=== PATIENT | female | born 1960 | race Hispanic/Latino ===

== ENCOUNTER 2021-11-20 14:22 | Inpatient (IN) | payer BC, OTHER ==
[~2021-11-20] VITALS: Ht 152.4 cm; Wt 78.0 kg
[2021-11-20 14:55] LABS: BASOPHILS % 0.6 % (0.0-1.0); EOSINOPHILS # (AUTO) 0.1 (0.0-0.4); EOSINOPHILS % 2.8 % (0.0-6.0); HEMATOCRIT 40.5 % (34.2-44.1); HEMOGLOBIN 12.5 g/dL (12.0-16.0); LYMPHOCYTES # (AUTO) 0.7 (1.0-3.2); LYMPHOCYTES % 19.8 % (18.0-39.1); MEAN CORPUSCULAR HEMOGLOBIN 28.6 pg (28-32); MEAN CORPUSCULAR HGB CONC 30.9 g/dL (31-35); MEAN CORPUSCULAR VOLUME 92.7 fL (81-99); MONOCYTES # (AUTO) 0.3 (0.2-0.8); MONOCYTES % 8.1 % (4.4-11.3); NEUTROPHILS # (AUTO) 2.5 (2.1-6.9); NEUTROPHILS % 68.4 % (38.7-80.0); PLATELET COUNT 50 x10e3/uL (140-360); RED BLOOD COUNT 4.37 x10e6/uL (3.6-5.1); RED CELL DISTRIBUTION WIDTH 15.5 % (11.7-14.4)
[2021-11-20 15:02] LABS: AMMONIA 294 UG/DL (31-123)
[2021-11-20 15:03] LABS: INR 1.25; PROTHROMBIN TIME 16.5 seconds (11.9-14.5)
[2021-11-20 15:04] LABS: PARTIAL THROMBOPLASTIN TIME 36.3 seconds (23.8-35.5)
[2021-11-20 15:14] LABS: ALBUMIN 3.2 g/dL (3.5-5.0); ALBUMIN/GLOBULIN RATIO 0.5 (0.8-2.0); ANION GAP 13.7 mmol/L (8-16); CALCIUM 9.5 mg/dL (8.4-10.2); CREATININE, SERUM 1.22 mg/dL (0.57-1.11)
[2021-11-20 15:18] LABS: POTASSIUM 6.7 mmol/L (3.5-5.1)
[2021-11-20 15:20] LABS: CREATINE KINASE MB 1.2 ng/mL (0-5.0)
[2021-11-20 15:22] LABS: B-TYPE NATRIURETIC PEPTIDE2 < 10.0 pg/mL (0-100)
[2021-11-20 15:23] LABS: SALICYLATE < 5.0 mg/dL (0-30)
[2021-11-20] MEDS ORDERED: SODIUM BICARBONATE 8.4% INJ 50 ML SYR IV STA (15:28)
[2021-11-20 15:32] LABS: AMPHETAMINES SCREEN,URINE NEGATIVE (NEGATIVE); BENZODIAZEPINES SCREEN,URINE NEGATIVE (NEGATIVE); CLARITY,URINE SL CLOUDY (CLEAR); COLOR,URINE STRAW (YELLOW); KETONES,URINE NEGATIVE (NEGATIVE); LEUKOCYTE ESTERASE ,URINE NEGATIVE (NEGATIVE); NITRITE,URINE NEGATIVE (NEGATIVE); PHENCYCLIDINE SCREEN,URINE NEGATIVE (NEGATIVE); PROTEIN,URINE DIPSTICK 1+ (NEGATIVE); URINE UROBILINOGEN 0.2 mg/dL (0.2 - 1)
[2021-11-20 15:42] LABS: BACTERIA,URINE MODERATE /HPF; RBC,URINE 0-5 /HPF (0-5)
[2021-11-20] MEDS ORDERED: SODIUM CHLORIDE 0.9% 500ML 500 ML IV ONE (15:45)
[2021-11-20 15:54] LABS: ANION GAP 11.1 mmol/L (8-16); CALCIUM 9.1 mg/dL (8.4-10.2); CREATININE, SERUM 1.16 mg/dL (0.57-1.11)
[2021-11-20 15:56] LABS: POTASSIUM 6.1 mmol/L (3.5-5.1)
[2021-11-20 15:57] LABS: ABG HCO3 16 mmol/L (22-26); ABG PCO2 30 mmHg (35-45); ABG PH 7.34 (7.35-7.45); ABG PO2 121 mmHg (80-105); ABG TCO2 17
[2021-11-20] MEDS ORDERED: DEXTROSE 50% SYRINGE 50 ML IV STA (16:04)
[2021-11-20] MEDS ORDERED: INSULIN REGULAR, HUMAN 100 UNIT/1 ML IV ONE (16:15)
[2021-11-20] MEDS ORDERED: LACTULOSE SYRUP 20 GM/30 ML UDC PO ONE (16:15)
[2021-11-20] MEDS ORDERED: SOD POLYSTYRENE SULFONATE SUSP 15 GM/60 ML BTL PO ONE (16:15)
[2021-11-20] MEDS ORDERED: IOPAMIDOL 370 MG/ML 200 ML INFUS..BTL INJ ONE (16:19)
[2021-11-20] MEDS ORDERED: DEXTROSE 50% SYRINGE 50 ML IV PRN (16:45)
[2021-11-20] MEDS ORDERED: SODIUM CHLORIDE 0.9% 1000ML 1,000 ML IV ONE (16:45)
[2021-11-20] MEDS ORDERED: ONDANSETRON HCL INJ 2MG/ML 2ML 2 MG/ML VIAL IV PRN (16:45)
[2021-11-20] MEDS ORDERED: LACTULOSE SYRUP 20 GM/30 ML UDC PO PRN (16:45)
[2021-11-20] MEDS: RIFAXIMIN 550 MG TABLET PO SCH (18:00)
[2021-11-20] MEDS: LACTULOSE SYRUP 20 GM/30 ML UDC RC SCH (18:10)
[2021-11-20] MEDS ORDERED: HALOPERIDOL LACTATE 5 MG/ML VIAL IV STA (18:32)
[2021-11-20] MEDS ORDERED: HALOPERIDOL LACTATE 5 MG/ML VIAL ONE (18:38)
[2021-11-20] MEDS ORDERED: LORAZEPAM INJ 2 MG/ML VIAL ONE (18:39)
[2021-11-20] MEDS ORDERED: LORAZEPAM INJ 2 MG/ML VIAL IV ONE (18:45)
[2021-11-20 20:00] VITALS: BP 108/63
[2021-11-20 20:30] VITALS: BP 126/95
[2021-11-20] MEDS: DEXMEDETOMIDINE 400MCG/NS100ML 100 ML IV PRN (20:45)
[2021-11-20] MEDS ORDERED: DEXMEDETOMIDINE 400MCG/NS100ML 100 ML IV ONE (20:48)
[2021-11-20 21:00] VITALS: BP 132/54
[2021-11-20 21:16] LABS: ANION GAP 13.6 mmol/L (8-16); CALCIUM 9.2 mg/dL (8.4-10.2); CREATININE, SERUM 1.21 mg/dL (0.57-1.11); POTASSIUM 5.6 mmol/L (3.5-5.1)
[2021-11-20 22:00] VITALS: BP 131/56
[2021-11-20 22:03] LABS: CREATINE KINASE MB 3.3 ng/mL (0-5.0)
[2021-11-20] MEDS: CEFEPIME 1 GM in SODIUM CHLORIDE 0.9% 50ML 50 ML IV SCH (22:21)
[2021-11-20 23:00] VITALS: BP 125/83
[2021-11-20 23:59] VITALS: BP 125/83
[2021-11-21] VITALS (40 sets, daily range): BP systolic 90–148; BP diastolic 42–97
[2021-11-21] MEDS: LACTULOSE SYRUP 20 GM/30 ML UDC RC SCH ×3 (00:17→12:36)
[2021-11-21 03:54] LABS: CREATINE KINASE MB 3.3 ng/mL (0-5.0)
[2021-11-21] MEDS: METRONIDAZOLE 500MG/NS 100ML 100 ML IV SCH ×3 (06:21→17:34)
[2021-11-21 06:25] LABS: ALBUMIN 2.6 g/dL (3.5-5.0); ALBUMIN/GLOBULIN RATIO 0.5 (0.8-2.0); ANION GAP 9.6 mmol/L (8-16); CALCIUM 8.4 mg/dL (8.4-10.2); CREATININE, SERUM 1.05 mg/dL (0.57-1.11); POTASSIUM 4.6 mmol/L (3.5-5.1)
[2021-11-21] MEDS: RIFAXIMIN 550 MG TABLET PO SCH ×2 (08:56→17:33)
[2021-11-21] MEDS: CEFEPIME 1 GM in SODIUM CHLORIDE 0.9% 50ML 50 ML IV SCH ×2 (08:56→21:31)
[2021-11-21] MEDS: DEXMEDETOMIDINE 400MCG/NS100ML 100 ML IV PRN (08:58)
[2021-11-21 09:02] LABS: BASOPHILS % 0.5 % (0.0-1.0); HEMATOCRIT 32.8 % (34.2-44.1); HEMOGLOBIN 9.5 g/dL (12.0-16.0); LYMPHOCYTES # (AUTO) 0.5 (1.0-3.2); LYMPHOCYTES % 23.5 % (18.0-39.1); MEAN CORPUSCULAR HEMOGLOBIN 28.4 pg (28-32); MEAN CORPUSCULAR VOLUME 98.2 fL (81-99); MONOCYTES # (AUTO) 0.1 (0.2-0.8); MONOCYTES % 7.1 % (4.4-11.3); NEUTROPHILS # (AUTO) 1.3 (2.1-6.9); NEUTROPHILS % 66.9 % (38.7-80.0); RED BLOOD COUNT 3.34 x10e6/uL (3.6-5.1); RED CELL DISTRIBUTION WIDTH 15.5 % (11.7-14.4)
[2021-11-21 09:08] LABS: PLATELET COUNT 33 x10e3/uL (140-360)
[2021-11-21] MEDS: INSULIN LISPRO 100 UNIT/1 ML 3ML VIAL SQ SCH ×3 (11:39→21:32)
[2021-11-21] MEDS ORDERED: LACTULOSE SYRUP 20 GM/30 ML UDC PO PRN (12:45)
[2021-11-21] MEDS ORDERED: GLIPIZIDE5 MG PO (21:42)
[2021-11-21] MEDS ORDERED: SPIRONOLACTONE25 MG PO (21:43)
[2021-11-21] MEDS ORDERED: LASIX10 MG/ML PO (21:43)
[2021-11-22] VITALS (20 sets, daily range): BP systolic 77–153; BP diastolic 41–68
[2021-11-22] MEDS: METRONIDAZOLE 500MG/NS 100ML 100 ML IV SCH ×5 (00:59→23:53)
[2021-11-22 05:28] LABS: BASOPHILS % 0.4 % (0.0-1.0); EOSINOPHILS % 0.4 % (0.0-6.0); HEMATOCRIT 31.9 % (34.2-44.1); HEMOGLOBIN 9.3 g/dL (12.0-16.0); LYMPHOCYTES # (AUTO) 0.4 (1.0-3.2); LYMPHOCYTES % 17.7 % (18.0-39.1); MEAN CORPUSCULAR HEMOGLOBIN 28.5 pg (28-32); MEAN CORPUSCULAR HGB CONC 29.2 g/dL (31-35); MEAN CORPUSCULAR VOLUME 97.9 fL (81-99); MONOCYTES # (AUTO) 0.2 (0.2-0.8); MONOCYTES % 8.5 % (4.4-11.3); NEUTROPHILS # (AUTO) 1.8 (2.1-6.9); NEUTROPHILS % 72.6 % (38.7-80.0); RED BLOOD COUNT 3.26 x10e6/uL (3.6-5.1); RED CELL DISTRIBUTION WIDTH 15.2 % (11.7-14.4)
[2021-11-22 05:30] LABS: PLATELET COUNT 35 x10e3/uL (140-360)
[2021-11-22 06:05] LABS: ALBUMIN 2.5 g/dL (3.5-5.0); ALBUMIN/GLOBULIN RATIO 0.5 (0.8-2.0); CALCIUM 8.4 mg/dL (8.4-10.2); CREATININE, SERUM 1.08 mg/dL (0.57-1.11)
[2021-11-22 06:33] LABS: CHOL/HDL RATIO 4.8 (3.0-3.6)
[2021-11-22] MEDS: INSULIN LISPRO 100 UNIT/1 ML 3ML VIAL SQ SCH ×4 (07:30→21:29)
[2021-11-22] MEDS ORDERED: SODIUM CHLORIDE 0.9% 250ML 250 ML ONE (09:04)
[2021-11-22] MEDS: CEFEPIME 1 GM in SODIUM CHLORIDE 0.9% 50ML 50 ML IV SCH ×2 (09:12→21:20)
[2021-11-22] MEDS: RIFAXIMIN 550 MG TABLET PO SCH ×2 (09:12→17:04)
[2021-11-22] MEDS: ACETAMINOPHEN 325 MG TAB PO PRN (17:08)
[2021-11-22] MEDS ORDERED: HYDRALAZINE HCL 20 MG/ML VIAL IV PRN (21:30)
[2021-11-23] VITALS (8 sets, daily range): BP systolic 116–152; BP diastolic 49–66
[2021-11-23] MEDS: ACETAMINOPHEN 325 MG TAB PO PRN ×2 (05:32→17:38)
[2021-11-23] MEDS: METRONIDAZOLE 500MG/NS 100ML 100 ML IV SCH ×4 (05:53→23:58)
[2021-11-23 06:03] LABS: BASOPHILS % 0.8 % (0.0-1.0); EOSINOPHILS # (AUTO) 0.1 (0.0-0.4); EOSINOPHILS % 2.4 % (0.0-6.0); HEMATOCRIT 31.9 % (34.2-44.1); HEMOGLOBIN 9.6 g/dL (12.0-16.0); LYMPHOCYTES # (AUTO) 0.6 (1.0-3.2); LYMPHOCYTES % 25.6 % (18.0-39.1); MEAN CORPUSCULAR HEMOGLOBIN 28.7 pg (28-32); MEAN CORPUSCULAR HGB CONC 30.1 g/dL (31-35); MEAN CORPUSCULAR VOLUME 95.2 fL (81-99); MONOCYTES # (AUTO) 0.3 (0.2-0.8); MONOCYTES % 10.8 % (4.4-11.3); NEUTROPHILS # (AUTO) 1.5 (2.1-6.9); RED BLOOD COUNT 3.35 x10e6/uL (3.6-5.1); RED CELL DISTRIBUTION WIDTH 15.3 % (11.7-14.4)
[2021-11-23 06:10] LABS: ALBUMIN 2.3 g/dL (3.5-5.0); ALBUMIN/GLOBULIN RATIO 0.5 (0.8-2.0); ANION GAP 8.8 mmol/L (8-16); CREATININE, SERUM 1.09 mg/dL (0.57-1.11); POTASSIUM 3.8 mmol/L (3.5-5.1)
[2021-11-23 06:17] LABS: PLATELET COUNT 36 x10e3/uL (140-360)
[2021-11-23] MEDS: INSULIN LISPRO 100 UNIT/1 ML 3ML VIAL SQ SCH ×4 (08:16→20:44)
[2021-11-23] MEDS: CEFEPIME 1 GM in SODIUM CHLORIDE 0.9% 50ML 50 ML IV SCH ×2 (09:38→20:40)
[2021-11-23] MEDS: RIFAXIMIN 550 MG TABLET PO SCH ×2 (09:38→16:48)
[2021-11-23 11:05] LABS: PLATELET ESTIMATE MARKEDLY DECREASED
[2021-11-23 11:06] LABS: PLATELET MORPHOLOGY COMMENT NORMAL; RBC MORPHOLOGY COMMENT NORMAL
[2021-11-23] MEDS ORDERED: ONDANSETRON HCL 4 MG ORAL DISINTEGRATING TAB PO PRN (14:15)
[2021-11-24] VITALS (7 sets, daily range): BP systolic 128–155; BP diastolic 44–68
[2021-11-24] MEDS: METRONIDAZOLE 500MG/NS 100ML 100 ML IV SCH ×2 (05:03→12:54)
[2021-11-24 05:36] LABS: BASOPHILS % 0.4 % (0.0-1.0); EOSINOPHILS # (AUTO) 0.1 (0.0-0.4); HEMATOCRIT 30.8 % (34.2-44.1); HEMOGLOBIN 9.5 g/dL (12.0-16.0); LYMPHOCYTES # (AUTO) 0.6 (1.0-3.2); LYMPHOCYTES % 23.8 % (18.0-39.1); MEAN CORPUSCULAR HEMOGLOBIN 28.7 pg (28-32); MEAN CORPUSCULAR HGB CONC 30.8 g/dL (31-35); MEAN CORPUSCULAR VOLUME 93.1 fL (81-99); MONOCYTES # (AUTO) 0.2 (0.2-0.8); MONOCYTES % 10.2 % (4.4-11.3); NEUTROPHILS # (AUTO) 1.5 (2.1-6.9); NEUTROPHILS % 62.2 % (38.7-80.0); RED BLOOD COUNT 3.31 x10e6/uL (3.6-5.1)
[2021-11-24 05:51] LABS: PLATELET COUNT 35 x10e3/uL (140-360)
[2021-11-24 05:55] LABS: CALCIUM 7.8 mg/dL (8.4-10.2); CREATININE, SERUM 1.01 mg/dL (0.57-1.11); MAGNESIUM 1.9 MG/DL (1.3-2.1); PHOSPHORUS 1.9 MG/DL (2.3-4.7)
[2021-11-24] MEDS: INSULIN LISPRO 100 UNIT/1 ML 3ML VIAL SQ SCH ×2 (07:47→12:54)
[2021-11-24] MEDS: RIFAXIMIN 550 MG TABLET PO SCH (08:16)
[2021-11-24] MEDS: CEFEPIME 1 GM in SODIUM CHLORIDE 0.9% 50ML 50 ML IV SCH (08:16)
[2021-11-24] MEDS ORDERED: PHYTONADIONE 10 MG/ML AMP SQ ONE (09:30)
[2021-11-24] MEDS ORDERED: LACTULOSE20 GM/30 M PO (12:14)
== END 2021-11-24 16:06 | disposition home or self-care (01) | DRG 441 ==
LOC: ER 15:44 → ERHOLD 16:47 → ICU 20:02 → IMCU 11-22 08:52
PROVIDERS: ADMIT Internal Medicine; ATTEND Internal Medicine
PROC: 02HV33Z Insertion of Infusion Device into Superior Vena Cava, Percutaneous Approach (ICD-10-PCS; principal; 2021-11-20)
DX: K75.81 Nonalcoholic steatohepatitis (NASH) (principal); K72.00 Acute and subacute hepatic failure without coma; K76.6 Portal hypertension; D61.818 Other pancytopenia; N17.9 Acute kidney failure, unspecified; E87.2 Acidosis; E87.5 Hyperkalemia; E78.5 Hyperlipidemia, unspecified; Z90.49 Acquired absence of other specified parts of digestive tract; E66.9 Obesity, unspecified; Z68.33 Body mass index [BMI] 33.0-33.9, adult; Z20.822 Contact with and (suspected) exposure to COVID-19; D72.818 Other decreased white blood cell count
CPT/HCPCS: 36415; 36569; 36600; 51700; 70450; 71045; 74177; 80048; 80053; 80061; 80307; 80320; 80329; 81001; 82140; 82550; 82553; 82728; 82805; 82948; 83036; 83605; 83735; 83880; 84100; 84484; 85025; 85610; 85730; 86039; 86255; 87040; 87086; 93005; 94799; 96372; 99285; J0692; J1630; J1817; J2060; J3430; J7030; J7040; J7050; J7799; Q9967; U0002

== ENCOUNTER 2024-05-14 12:13 | Inpatient (IN) | payer OTHER ==
[~2024-05-14] VITALS: Ht 152.4 cm; Wt 78.0 kg
[~2024-05-14 12:13] MED LIST: ATORVASTATIN CA10 MG PO; CIPRO500 MG PO; GLIPIZIDE5 MG PO; HUMALOG MI100 UNIT/2 SQ; LACTULOSE20 GM/30 M PO; LASIX10 MG/ML PO; METHOCARBAMOL750 MG PO; MULTI-VITAMIN1 EACH PO; PROTONIX40 MG PO; PROTONIX40 MG/ML; SPIRONOLACTONE25 MG PO; XIFAXAN550 MG PO
[2024-05-14 12:58] LABS: BASOPHILS % 0.1 % (0.0-1.0); EOSINOPHILS % 0.1 % (0.0-6.0); HEMATOCRIT 35.4 % (34.2-44.1); HEMOGLOBIN 10.9 g/dL (12.0-16.0); LYMPHOCYTES # (AUTO) 0.7 (1.0-3.2); LYMPHOCYTES % 9.3 % (18.0-39.1); MEAN CORPUSCULAR HEMOGLOBIN 32.1 pg (28-32); MEAN CORPUSCULAR HGB CONC 30.8 g/dL (31-35); MEAN CORPUSCULAR VOLUME 104.1 fL (81-99); MONOCYTES # (AUTO) 0.3 (0.2-0.8); MONOCYTES % 4.2 % (4.4-11.3); NEUTROPHILS # (AUTO) 6.2 (2.1-6.9); PLATELET COUNT 53 x10e3/uL (140-360); RED CELL DISTRIBUTION WIDTH 19.2 % (11.7-14.4); WHITE BLOOD COUNT 7.19 x10e3/uL (4.8-10.8)
[2024-05-14 13:17] LABS: ALBUMIN 2.5 g/dL (3.5-5.0); ALBUMIN/GLOBULIN RATIO 0.5 (0.8-2.0); ANION GAP 22.3 mmol/L (8-16); BILIRUBIN,TOTAL 1.2 mg/dL (0.2-1.2); CALCIUM 7.7 mg/dL (8.4-10.2); CREATININE, SERUM 6.76 mg/dL (0.57-1.11); INR 1.55; PHOSPHORUS 6.2 MG/DL (2.3-4.7); PROTHROMBIN TIME 19.6 seconds (11.9-14.5); TOTAL PROTEIN 7.1 g/dL (6.5-8.1)
[2024-05-14 13:24] LABS: POTASSIUM 3.3 mmol/L (3.5-5.1); TROPONIN I 0.07 ng/mL (0-0.300)
[2024-05-14] MEDS ORDERED: ALBUMIN 25% 25GM 100ML 0.25 GM/ML BTL IV ONE (15:15)
[2024-05-14 16:21] VITALS: PULSE 74; RESP 20; O2SAT 96
[2024-05-14 17:02] LABS: BODY FLUID APPEARANCE SL.CLOUDY; BODY FLUID COLOR YELLOW; BODY FLUID TYPE PERITONEAL; RBC,BODY FLUID < 2000 cells/uL; WBC,BODY FLUID 6864 cells/uL
[2024-05-14] MEDS: ALBUMIN 25% 12.5GM 50ML 50 ML IV SCH (17:09)
[2024-05-14 17:48] VITALS: PULSE 68; RESP 18; TEMP 98.9
[2024-05-14] MEDS ORDERED: SODIUM CHLORIDE 0.9% 1000ML 1,000 ML IV SCH ×2 (18:45)
[2024-05-14 18:51] LABS: LYMPHOCYTES,BODY FLUID 1 %; MONO/MACROPHG,BODY FLUID 12 %; NEUTROPHILS,BODY FLUID 87 %; TOTAL CELLS COUNTED (DIFF) 100
[2024-05-14 20:00] VITALS: BP 96/44; PULSE 91; RESP 18; TEMP 98.3; O2SAT 97
[2024-05-14] MEDS ORDERED: LACTULOSE20 GM/30 M PO (20:02)
[2024-05-14] MEDS ORDERED: HYDROXYZINE HCL10 MG PO (20:02)
[2024-05-14] MEDS ORDERED: MIDODRINE HCL5 MG PO (20:02)
[2024-05-14] MEDS ORDERED: DOXYCYCLINE HY100 MG PO (20:02)
[2024-05-14 20:15] VITALS: PULSE 71; RESP 18; O2SAT 97
[2024-05-14] MEDS ORDERED: DEXTROSE 50% SYRINGE 50 ML IV PRN (20:15)
[2024-05-14] MEDS: INSULIN REGULAR, HUMAN 100 UNIT/1 ML SQ SCH (21:37)
[2024-05-14] MEDS: ATORVASTATIN 10 MG TAB PO SCH (21:38)
[2024-05-14] MEDS: MELATONIN 5 MG TABLET PO PRN (21:38)
[2024-05-14 22:29] VITALS: BP 109/58; PULSE 74; RESP 20; O2SAT 98
[2024-05-14 22:40] VITALS: BP 109/58; PULSE 74; RESP 20; O2SAT 98
[2024-05-15] VITALS (10 sets, daily range): BP systolic 88–108; BP diastolic 43–58; PULSE 60–92; RESP 17–18; TEMP 97.4–98.7; O2SAT 94–100
[2024-05-15] MEDS: ACETAMINOPHEN 325 MG TAB PO PRN (04:48)
[2024-05-15 06:04] LABS: EOSINOPHILS % 1.1 % (0.0-6.0); HEMATOCRIT 29.2 % (34.2-44.1); HEMOGLOBIN 8.7 g/dL (12.0-16.0); LYMPHOCYTES # (AUTO) 0.6 (1.0-3.2); MEAN CORPUSCULAR HEMOGLOBIN 31.9 pg (28-32); MEAN CORPUSCULAR HGB CONC 29.8 g/dL (31-35); MONOCYTES # (AUTO) 0.4 (0.2-0.8); MONOCYTES % 10.2 % (4.4-11.3); NEUTROPHILS # (AUTO) 2.7 (2.1-6.9); NEUTROPHILS % 73.4 % (38.7-80.0); RED BLOOD COUNT 2.73 x10e6/uL (3.6-5.1); RED CELL DISTRIBUTION WIDTH 18.8 % (11.7-14.4); WHITE BLOOD COUNT 3.73 x10e3/uL (4.8-10.8)
[2024-05-15 06:20] LABS: PLATELET COUNT 30 x10e3/uL (140-360)
[2024-05-15 06:34] LABS: ANION GAP 19.2 mmol/L (8-16); CALCIUM 7.3 mg/dL (8.4-10.2); CREATININE, SERUM 7.03 mg/dL (0.57-1.11); POTASSIUM 3.2 mmol/L (3.5-5.1)
[2024-05-15] MEDS ORDERED: ALBUMIN 25% 25GM 100ML 0.25 GM/ML BTL IV ONE (08:00)
[2024-05-15] MEDS: PANTOPRAZOLE SODIUM 40 MG SUSPDR.PKT PO SCH (08:46)
[2024-05-15] MEDS: LACTULOSE SYRUP 20 GM/30 ML UDC PO SCH (08:46)
[2024-05-15] MEDS: MIDODRINE HCL 5 MG TABLET PO SCH (08:46)
[2024-05-15] MEDS: RIFAXIMIN 550 MG TABLET PO SCH (08:46)
[2024-05-15 12:46] LABS: IRON 53 ug/dL (50-170); TRANSFERRIN < 70 mg/dL (180-382)
[2024-05-15] MEDS: POTASSIUM CHLORIDE 20 MEQ TAB CR PO ONE (12:57)
[2024-05-15 13:07] LABS: FERRITIN 399.14 ng/mL (4.63-204.00)
[2024-05-15] MEDS ORDERED: HEPARIN SOD (PORCINE) 1000 UNIT/ML SDV IV PRN (17:00)
[2024-05-15] MEDS ORDERED: SODIUM CHLORIDE 0.9% 1000ML 2,000 ML IV PRN (17:00)
[2024-05-16] VITALS (11 sets, daily range): BP systolic 95–125; BP diastolic 43–56; PULSE 69–96; RESP 17–20; TEMP 97.9–98.8; O2SAT 95–100
[2024-05-16 06:12] LABS: BASOPHILS % 0.3 % (0.0-1.0); EOSINOPHILS # (AUTO) 0.1 (0.0-0.4); EOSINOPHILS % 1.4 % (0.0-6.0); HEMATOCRIT 33.8 % (34.2-44.1); HEMOGLOBIN 10.3 g/dL (12.0-16.0); LYMPHOCYTES # (AUTO) 0.5 (1.0-3.2); MEAN CORPUSCULAR HEMOGLOBIN 32.3 pg (28-32); MEAN CORPUSCULAR HGB CONC 30.5 g/dL (31-35); MONOCYTES # (AUTO) 0.3 (0.2-0.8); MONOCYTES % 9.2 % (4.4-11.3); NEUTROPHILS # (AUTO) 2.6 (2.1-6.9); NEUTROPHILS % 74.8 % (38.7-80.0); RED BLOOD COUNT 3.19 x10e6/uL (3.6-5.1); RED CELL DISTRIBUTION WIDTH 19.2 % (11.7-14.4); WHITE BLOOD COUNT 3.49 x10e3/uL (4.8-10.8)
[2024-05-16 06:36] LABS: ALBUMIN 2.9 g/dL (3.5-5.0); ALBUMIN/GLOBULIN RATIO 0.7 (0.8-2.0); BILIRUBIN,TOTAL 0.9 mg/dL (0.2-1.2); CALCIUM 7.6 mg/dL (8.4-10.2); CREATININE, SERUM 4.21 mg/dL (0.57-1.11); TOTAL PROTEIN 7.1 g/dL (6.5-8.1)
[2024-05-16 06:37] LABS: PLATELET COUNT 38 x10e3/uL (140-360)
[2024-05-16 09:25] LABS: ANISOCYTOSIS MODERATE; PLATELET ESTIMATE MARKEDLY DECREASED; PLATELET MORPHOLOGY COMMENT NORMAL; RBC MORPHOLOGY COMMENT ABNORMAL
[2024-05-16 09:26] LABS: HYPOCHROMASIA SLIGHT
[2024-05-16] MEDS: CEFTRIAXONE 2 GM in SODIUM CHLORIDE 0.9% 100 ML IV SCH (09:28)
[2024-05-16] MEDS: INSULIN GLARGINE 100 UNITS/ML VIAL SQ SCH (20:58)
[2024-05-17] VITALS (7 sets, daily range): BP systolic 93–119; BP diastolic 50–55; PULSE 84–90; RESP 17–18; TEMP 97.9–98.5; O2SAT 94–100
[2024-05-17 06:34] LABS: HEPATITIS B SURFACE AG (P) Negative (Negative)
[2024-05-17] MEDS: INSULIN GLARGINE 100 UNITS/ML VIAL SQ SCH (21:24)
[2024-05-18] VITALS (9 sets, daily range): BP systolic 100–119; BP diastolic 48–53; PULSE 84–97; RESP 16–20; TEMP 98.2–98.8; O2SAT 96–100
[2024-05-18 06:13] LABS: BASOPHILS % 0.3 % (0.0-1.0); EOSINOPHILS # (AUTO) 0.1 (0.0-0.4); EOSINOPHILS % 3.7 % (0.0-6.0); HEMATOCRIT 31.1 % (34.2-44.1); HEMOGLOBIN 9.2 g/dL (12.0-16.0); LYMPHOCYTES # (AUTO) 0.6 (1.0-3.2); LYMPHOCYTES % 18.1 % (18.0-39.1); MEAN CORPUSCULAR HEMOGLOBIN 31.5 pg (28-32); MEAN CORPUSCULAR HGB CONC 29.6 g/dL (31-35); MEAN CORPUSCULAR VOLUME 106.5 fL (81-99); MONOCYTES # (AUTO) 0.4 (0.2-0.8); MONOCYTES % 13.5 % (4.4-11.3); NEUTROPHILS # (AUTO) 2.1 (2.1-6.9); NEUTROPHILS % 64.1 % (38.7-80.0); RED BLOOD COUNT 2.92 x10e6/uL (3.6-5.1); RED CELL DISTRIBUTION WIDTH 18.4 % (11.7-14.4); WHITE BLOOD COUNT 3.26 x10e3/uL (4.8-10.8)
[2024-05-18 06:20] LABS: PLATELET COUNT 32 x10e3/uL (140-360)
[2024-05-18 06:33] LABS: ANION GAP 14.2 mmol/L (8-16); CALCIUM 7.2 mg/dL (8.4-10.2); CREATININE, SERUM 4.67 mg/dL (0.57-1.11)
[2024-05-18 06:36] LABS: POTASSIUM 3.2 mmol/L (3.5-5.1)
[2024-05-18 09:36] LABS: HYPOCHROMASIA MODERATE; OVALOCYTES FEW; PLATELET ESTIMATE MARKEDLY DECREASED; PLATELET MORPHOLOGY COMMENT NORMAL; POLYCHROMASIA FEW; RBC MORPHOLOGY COMMENT ABNORMAL
[2024-05-18] MEDS: POTASSIUM CHLORIDE 20 MEQ TAB CR PO ONE (17:07)
[2024-05-19] VITALS: BP 106/59; PULSE 96; RESP 18; TEMP 98.3; O2SAT 100
[2024-05-19 04:00] VITALS: BP 116/59; PULSE 100; RESP 18; TEMP 98.2; O2SAT 100
[2024-05-19 06:18] LABS: BASOPHILS % 0.5 % (0.0-1.0); EOSINOPHILS # (AUTO) 0.1 (0.0-0.4); EOSINOPHILS % 2.8 % (0.0-6.0); HEMATOCRIT 33.9 % (34.2-44.1); LYMPHOCYTES # (AUTO) 0.6 (1.0-3.2); LYMPHOCYTES % 14.8 % (18.0-39.1); MEAN CORPUSCULAR HEMOGLOBIN 31.4 pg (28-32); MEAN CORPUSCULAR HGB CONC 29.5 g/dL (31-35); MEAN CORPUSCULAR VOLUME 106.6 fL (81-99); MONOCYTES # (AUTO) 0.6 (0.2-0.8); NEUTROPHILS # (AUTO) 2.7 (2.1-6.9); NEUTROPHILS % 67.4 % (38.7-80.0); RED BLOOD COUNT 3.18 x10e6/uL (3.6-5.1); RED CELL DISTRIBUTION WIDTH 18.4 % (11.7-14.4); WHITE BLOOD COUNT 3.99 x10e3/uL (4.8-10.8)
[2024-05-19 06:26] LABS: PLATELET COUNT 37 x10e3/uL (140-360)
[2024-05-19 06:36] LABS: ALBUMIN 2.6 g/dL (3.5-5.0); ALBUMIN/GLOBULIN RATIO 0.7 (0.8-2.0); ANION GAP 12.6 mmol/L (8-16); BILIRUBIN,TOTAL 0.7 mg/dL (0.2-1.2); CALCIUM 7.6 mg/dL (8.4-10.2); CREATININE, SERUM 3.36 mg/dL (0.57-1.11); POTASSIUM 3.6 mmol/L (3.5-5.1); TOTAL PROTEIN 6.5 g/dL (6.5-8.1)
[2024-05-19 06:47] VITALS: PULSE 95; RESP 20; O2SAT 95
[2024-05-19 07:57] VITALS: BP 107/49; PULSE 97; RESP 18; TEMP 97.1; O2SAT 98
[2024-05-19 08:03] VITALS: BP 107/49; PULSE 97; RESP 18; TEMP 97.1; O2SAT 98
[2024-05-19] MEDS ORDERED: CIPRO500 MG PO (09:13)
[2024-05-19 11:06] VITALS: BP 113/49; PULSE 86; RESP 16; TEMP 97.4; O2SAT 100
[2024-05-21] MEDS ORDERED: POTASSIUM ACETAT1 GM PO (14:19)
== END 2024-05-19 12:16 | disposition home or self-care (01) | DRG 682 ==
LOC: ER 12:54 → ERHOLD 16:13 → MED/SURG2 18:11 → OBSVTOIN 05-15 07:34
PROVIDERS: ADMIT Family Medicine Adult Medicine; ATTEND Family Medicine Adult Medicine
PROC: 0W9G3ZZ Drainage of Peritoneal Cavity, Percutaneous Approach (ICD-10-PCS; 2024-05-14)
PROC: 5A1D70Z Performance of Urinary Filtration, Intermittent, Less than 6 Hours Per Day (ICD-10-PCS; principal; 2024-05-15)
DX: I12.0 Hypertensive chronic kidney disease with stage 5 chronic kidney disease or end stage renal disease (principal); K65.2 Spontaneous bacterial peritonitis; N18.6 End stage renal disease; R18.8 Other ascites; D68.9 Coagulation defect, unspecified; K74.60 Unspecified cirrhosis of liver; E11.22 Type 2 diabetes mellitus with diabetic chronic kidney disease; Z76.82 Awaiting organ transplant status; D69.6 Thrombocytopenia, unspecified; E83.39 Other disorders of phosphorus metabolism; D63.1 Anemia in chronic kidney disease; E83.51 Hypocalcemia; Z99.2 Dependence on renal dialysis; E66.9 Obesity, unspecified; Z68.33 Body mass index [BMI] 33.0-33.9, adult; E87.6 Hypokalemia; D53.9 Nutritional anemia, unspecified; Z11.52 Encounter for screening for COVID-19; Z91.158 Patient's noncompliance with renal dialysis for other reason; Z79.4 Long term (current) use of insulin; Z91.013 Allergy to seafood; Z88.8 Allergy status to other drugs, medicaments and biological substances
CPT/HCPCS: 36415; 49083; 71045; 80048; 80053; 82040; 82550; 82607; 82728; 82746; 82948; 83540; 83735; 83880; 84100; 84157; 84466; 84484; 85025; 85610; 85730; 86706; 87070; 87205; 87340; 88112; 88305; 89051; 94799; 99252; 99284; C1729; G0378; J0696; J1644; J1815; J7030; J7050; P9047; U0002

== ENCOUNTER → 2024-05-22 | Outpatient (REF) | payer OTHER ==
[~2024-05-22] MED LIST changes: +CEFAZOLIN SODIUM 2 GM ONE; +DOXYCYCLINE HY100 MG PO; +HEPARIN SOD (PORCINE) 1000 UNIT/ML 30ML ONE; +HYDROXYZINE HCL10 MG PO; +MIDODRINE HCL5 MG PO; +POTASSIUM ACETAT1 GM PO; +SODIUM CHLORIDE 0.9% 500ML 0 ML ONE; +SODIUM CHLORIDE 0.9% 500ML 500 ML ONE
[2024-05-22 11:09] LABS: BASOPHILS % 0.3 % (0.0-1.0); EOSINOPHILS # (AUTO) 0.1 (0.0-0.4); EOSINOPHILS % 2.9 % (0.0-6.0); HEMATOCRIT 31.4 % (34.2-44.1); HEMOGLOBIN 9.5 g/dL (12.0-16.0); LYMPHOCYTES # (AUTO) 0.6 (1.0-3.2); LYMPHOCYTES % 18.1 % (18.0-39.1); MEAN CORPUSCULAR HEMOGLOBIN 31.9 pg (28-32); MEAN CORPUSCULAR HGB CONC 30.3 g/dL (31-35); MEAN CORPUSCULAR VOLUME 105.4 fL (81-99); MONOCYTES # (AUTO) 0.5 (0.2-0.8); MONOCYTES % 14.6 % (4.4-11.3); NEUTROPHILS # (AUTO) 2.2 (2.1-6.9); NEUTROPHILS % 63.5 % (38.7-80.0); PLATELET COUNT 54 x10e3/uL (140-360); RED BLOOD COUNT 2.98 x10e6/uL (3.6-5.1); RED CELL DISTRIBUTION WIDTH 17.8 % (11.7-14.4); WHITE BLOOD COUNT 3.49 x10e3/uL (4.8-10.8)
[2024-05-22 11:23] LABS: INR 1.4; PROTHROMBIN TIME 17.9 seconds (11.9-14.5)
[2024-05-22 11:24] LABS: PARTIAL THROMBOPLASTIN TIME 37.4 seconds (23.8-35.5)
[2024-05-22 11:28] LABS: ANION GAP 15.9 mmol/L (8-16); CALCIUM 8.1 mg/dL (8.4-10.2); CREATININE, SERUM 4.32 mg/dL (0.57-1.11); POTASSIUM 3.9 mmol/L (3.5-5.1)
== END | disposition home or self-care (01) ==
LOC: RAD 05:00 → OR 09:41 → EDSTATUS 11:00
PROVIDERS: ATTEND Surgery
DX: N18.6 End stage renal disease (principal); Z53.8 Procedure and treatment not carried out for other reasons
CPT/HCPCS: 36415; 80048; 82948; 85025; 85610; 85730; J1644; J7040

== ENCOUNTER → 2024-05-24 | Day surgery (SDC) | payer OTHER ==
[~2024-05-24] MED LIST changes: -CEFAZOLIN SODIUM 2 GM ONE; -HEPARIN SOD (PORCINE) 1000 UNIT/ML 30ML ONE; +HEPARIN SOD (PORCINE) 5,000 UNIT/ML VIAL ONE; +POTASSIUM CHLORIDE 20 MEQ TAB CR PO ONE; +SODIUM CHLORIDE 0.9% 0 ML ONE; +SODIUM CHLORIDE 0.9% 250ML 250 ML ONE; -SODIUM CHLORIDE 0.9% 500ML 0 ML ONE; -SODIUM CHLORIDE 0.9% 500ML 500 ML ONE
[2024-05-24 07:26] LABS: BASOPHILS % 0.8 % (0.0-1.0); EOSINOPHILS # (AUTO) 0.1 (0.0-0.4); EOSINOPHILS % 2.1 % (0.0-6.0); HEMATOCRIT 32.3 % (34.2-44.1); HEMOGLOBIN 9.7 g/dL (12.0-16.0); LYMPHOCYTES # (AUTO) 0.5 (1.0-3.2); LYMPHOCYTES % 14.4 % (18.0-39.1); MEAN CORPUSCULAR HEMOGLOBIN 32.4 pg (28-32); MONOCYTES # (AUTO) 0.4 (0.2-0.8); MONOCYTES % 10.9 % (4.4-11.3); NEUTROPHILS # (AUTO) 2.7 (2.1-6.9); NEUTROPHILS % 71.5 % (38.7-80.0); PLATELET COUNT 52 x10e3/uL (140-360); RED BLOOD COUNT 2.99 x10e6/uL (3.6-5.1); RED CELL DISTRIBUTION WIDTH 17.8 % (11.7-14.4); WHITE BLOOD COUNT 3.75 x10e3/uL (4.8-10.8)
[2024-05-24 07:39] LABS: INR 1.34; PARTIAL THROMBOPLASTIN TIME 35.8 seconds (23.8-35.5); PROTHROMBIN TIME 17.2 seconds (11.9-14.5)
[2024-05-24] MEDS: SODIUM CHLORIDE 0.9% 500ML 500 ML ONE (07:54)
[2024-05-24 08:16] LABS: ALBUMIN 2.4 g/dL (3.5-5.0); ALBUMIN/GLOBULIN RATIO 0.5 (0.8-2.0); ANION GAP 14.4 mmol/L (8-16); CALCIUM 7.8 mg/dL (8.4-10.2); CREATININE, SERUM 3.43 mg/dL (0.57-1.11); TOTAL PROTEIN 6.9 g/dL (6.5-8.1)
[2024-05-24 08:23] LABS: POTASSIUM 2.4 mmol/L (3.5-5.1)
== END | disposition home or self-care (01) ==
LOC: OR 06:06
PROVIDERS: ATTEND Surgery
DX: N18.6 End stage renal disease (principal); Z53.8 Procedure and treatment not carried out for other reasons
CPT/HCPCS: 36415; 80053; 82948; 84132; 85025; 85049; 85610; 85730; 86850; 86900; 93005; J1644; J7040; J7050; P9034